=== PATIENT | female | born 1975 | race Caucasian/White ===

== ENCOUNTER 2019-08-04 13:37 | Outpatient (REF) | payer BC, SELFPAY ==
[2019-08-05 13:00] LABS: Chlamydia Result Negative (Negative); GC Result Negative (Negative)
== END 2019-08-04 13:57 ==
LOC: LBN 13:37
PROVIDERS: PCP Nurse Practitioner Family; Visit Provider Nurse Practitioner Family
DX: Z11.3 Encounter for screening for infections with a predominantly sexual mode of transmission (principal)
CPT/HCPCS: 87491; 87591

== ENCOUNTER 2020-08-16 01:57 | Outpatient (CLI) | payer BC, SELFPAY ==
--- NOTE | 2020-08-16 06:45 | DI.MAMMO_ITS ---
EXAM: MG MAMMO SCREENING CLINICAL HISTORY: screening. TECHNIQUE: Bilateral full field digital CC and MLO mammographic images were obtained with 3D tomosyn thesis and utilizing computer aided detection (CAD). COMPARISON: Baseline mammogram on 45-year-old patient FINDINGS: Fibroglandular tissue is very dense, this decreasing the sensitivity mammogram for finding in underly ing lesions. There are no obvious spiculated masses nor malignant appearing microcalcification groups. There is n o significant architectural distortion nor skin thickening-retraction. IMPRESSION: Very dense bilateral fibroglandular tissue. No obvious radiographic evidence of malignancy. BI-RADS Category 1 - Negative Breast Density - Category D - Extremely dense Breast density Category C or D implies that the patient has dense breast tissue. Dense breast tissue can make it harder to find cancer on a mammogram. Dense breast tissue is also associated with an incr eased risk of breast cancer. This information about the result of the mammogram report was provided to the patient to raise their awareness. Use this report when you speak with the patient about their risks for breast cancer, which includes their family history. At that time, you may recommend additional screening tests (Ultrasoun d or MRI) as these tests may add significant information. A negative radiographic report should not delay biopsy if a dominant or clinically suspicious mass is present. Up to ten percent of cancers are not identified on mammography. A negative report may reinforce clinical impression. Adenosis and dense breasts may obscure an underlying neoplasm. False positive reports average 6 to 10%. Patient will receive a letter notifying them of these results.
== END 2020-08-16 02:17 ==
PROVIDERS: PCP Nurse Practitioner Family; Visit Provider Nurse Practitioner
DX: Z12.31 Encounter for screening mammogram for malignant neoplasm of breast (principal)
CPT/HCPCS: 77063; 77067

== ENCOUNTER 2020-09-24 08:41 | Outpatient (REF) | payer BC, SELFPAY ==
--- NOTE | 2020-09-24 08:30 | PAPFT_PTH ---
PATIENT: Larisa Gibbs LOC: [facility] U#:[id number] AGE/SX: 45/F ROOM: RE09/24/[address]: LUIS Serrato : 1975 BED: DIS: 09/24/2020 SPEC #: [id number] RECD: 09/24/20 18:21 STATUS: SHIV REQ #: [id number] JHONATHAN: 09/24/20 08:[address]: Destinee Joyce DEPT: [facility] Cytology RECD BY: Lianna Becerra ENTERED: 09/24/20 18:22 SP TYPE: PAPFT OTHR DR: LUIS Bravo Tissues: 1 - CX/ENDOCX FOR PAP SMEARS Procedures: PAP THIN PREP/UVM Screening HPV DNA PROBE Comments: [id number]
== END 2020-09-24 08:42 | disposition home or self-care (01) ==
LOC: LBN 08:41
PROVIDERS: PCP Nurse Practitioner Family; Visit Provider Nurse Practitioner Family
DX: Z12.4 Encounter for screening for malignant neoplasm of cervix (principal); Z11.51 Encounter for screening for human papillomavirus (HPV)
CPT/HCPCS: 88142; 87624

== ENCOUNTER 2021-09-09 02:20 | Outpatient (CLI) | payer BC, SELFPAY ==
[2021-09-09 12:30] LABS: Source Nasal/Nares
[2021-09-09 17:58] LABS: COVID-19 PCR Negative (Negative)
== END 2021-09-09 02:21 | disposition home or self-care (01) ==
LOC: LBO 02:20
PROVIDERS: PCP Nurse Practitioner Family; Visit Provider Surgery
DX: Z20.822 Contact with and (suspected) exposure to COVID-19 (principal); Z01.818 Encounter for other preprocedural examination
CPT/HCPCS: 87635

== ENCOUNTER 2021-09-11 07:35 | Day surgery (SDC) | payer BC, SELFPAY ==
--- NOTE | 2021-09-11 06:29 | ROE_ITS ---
Date of service: 09/11/21 Time of Service: 09:21 Operative Note Operative Note DATE OF PROCEDURE: 09/11/21 PRE-OP DIAGNOSIS: 1. Lipoma of right upper back 2. Skin lesion of right lower back POST-OP DIAGNOSIS: same PROCEDURE: 1. Excision of lipoma- measuring 5 x 3 cm. 2. Excision of skin lesion - measuring 1.5 x 0.5 cm SURGEON: Brooke Mitchell Refer to Anesthesia Record PATHOLOGY: other (skin lesion) COMPLICATIONS: None Patient was transported to: same day Patient's condition: stable Indications: 46 year old female with a lipoma on her right upper back as well as a smaller skin lesion in the right lower back.? We discussed excision in the procedure room under local only. She can drive herself and have food that morning if she wants. I reviewed the risks and complications as well as aftercare Proceed with excision of right upper back lipoma and right lower back skin lesion Procedure Description: After informed consent was obtained the patient was taken to the operating room. Monitors were applied and she was then placed in a left lateral position. The skin was then prepped and draped in a sterile surgical fashion. Exparel mix ed with bupivocaine was injected over the palpable lipoma in the upper back and around the skin lesion in the lower back. An incision was made over the palpable lipoma with a 15 blade. Cautery was used to dissected through the subcutaneous tissue down to the capsule over the lipoma. Dissection was then done around the lipoma using both blunt dissection with a hemostat and sharp dissection with curved iris scissors. Once the lipoma was completely dissected it was removed from the operating field. The wound was irrigated with some saline. Bleeding was stopped using cautery as well as suture ligation. Once the wound was clean and dry the subcutaneous tissue was reapproximated with 3-0 Vicryl interrupted sutures. The dermis was closed with a interrupted 3-0 proline vertical mattress suture. Skin was cleaned and dried andmastasol and steri-strip were applied. Next an eliptical incision was made around the skin lesion in the lower back. Dissection was done with the scalple down to the subcutaneous tissue. Once completely dissected it was removed from the operating field and marked in the inferior edge of the tissue and placed into formalin. The skin edges were re-approximated with 3-0 Vicryl in the subcutaneous tissue and 4-0 vicryl for the dermis. The skin was cleaned and dried and skin affix was applied. The patient tolerated the procedure well and there were no immediate complications. Needle counts were correct at the end of the case.
--- NOTE | 2021-09-11 06:32 | W.PM.DSUDISC ---
Discharge Plan Disposition Patient Disposition: HOME Condition: Stable Discharge Details Reason For Visit: excision lesion and lipoma Attending Provider: Brooke Mitchell Primary Care Provider: Caprice Guerrero Home Meds and New Rx's Prescriptions: Continued sumatriptan succinate 50 mg tablet 50 mg PO Q2H MDD 2 tabs PRN (Reason: migraine headache) Qty: 60 3RF Rx Instructions: Take 1 tablet once at onset of headache, may repeat x 1 after 2hrs if needed. naproxen 500 mg tablet 500 mg PO BID PRN (Reason: pain) Qty: 60 4RF multivitamin 1 EACH tablet 1 tab PO DAILY 0RF Mirena 1 EACH intrauterine device 1 ea Intrauterine ONCE Qty: 1 0RF Label Comments: Placed 08/10/2014. Expires 08/10/2019 Discharge Instructions Additional Instructions: Activity at Home after surgery: 1. As tolerated Diet, Nutrition, & wound healin. As Tolerated Pain Medications: 1. Tylenol 650mg every 6 hours as needed and Ibuprofen 600 mg every 6 hours as needed. You may alternate between the 2 medications every 3 hours 2.If you are taking the Naproxen dont take ibuprofen For Constipation: 1. Take Milk of Magnesia or MiraLax as needed for constipation Other: 1. You may shower daily. Do not scrub the incisions 2. Do not soak the incisions for 1 week 3. You may alternate ice and heat as needed for pain and swelling Wound Care: 1. Keep the incisions clean and dry Please call our office if you develop: 1. Fevers >101.5 2. Nausea or Vomiting 3. Worsening pain 4. Redness and thick discharge from the wounds If after hours please call the Hospital at and ask to speak to the on-call surgeon Referrals: Brooke Mitchell MD [ [facility] STAFF PHYSICIAN] - 09/24/21 11:00 am Activity:: Activity as Tolerated Diet:: As Tolerated Discharge Orders Discharge Orders: Discharge Order (Routine); Ordered 09/11/21 Ordered By: Brooke Mitchell
[2021-09-11 07:43] VITALS: BP 136/86; PULSE 65; RESP 16; TEMP 36.7; O2SAT 100
[2021-09-11] MEDS: Celecoxib 200 MG CAP PO (07:57)
[2021-09-11] MEDS: Acetaminophen 500 MG TAB 1000 MG PO (07:58)
[2021-09-11] MEDS: Lactated Ringers 1,000 ML 80 ML IV (08:05)
[2021-09-11] MEDS: ceFAZolin 2 GM/50 ML BAG IVPB (08:20)
[2021-09-11] MEDS: Bupivacaine LIPOSOME/PF 133 MG/10 ML VIAL IJ (08:29)
[2021-09-11] MEDS: Bupivacaine 0.25% Pres-Free 30 ML VIAL (08:29)
--- NOTE | 2021-09-11 09:00 | SKI_PTH ---
PATIENT: Larisa Gibbs LOC: [facility] U#:[id number] AGE/SX: 46/F ROOM: RE09/11/[address]: Brooke Mitchell MD : 1975 BED: DIS: 09/11/2021 SPEC #: [id number] RECD: 09/11/21 12:38 STATUS: SHIV REJc #: [id number] JHONATHAN: 09/11/21 09:[address]: Brooke Mitchell DEPT: Surgical Specimen RECD BY: Lianna Becerra ENTERED: 09/11/21 12:39 SP TYPE: TOO ROBISON DR: Caprice Guerrero, LUIS Tissues: 1 - SKIN BIOPSY(SHAVE/PUNCH) Procedures: SKIN LEVEL 4 Comments: [id number]
[2021-09-11 09:22] VITALS: BP 132/92; PULSE 65; RESP 16; TEMP 36.4; O2SAT 100
== END 2021-09-11 09:40 | disposition home or self-care (01) ==
LOC: SUR 07:36
PROVIDERS: PCP Nurse Practitioner Family; Visit Provider Surgery
PROC: (CPT 11406; principal; 2021-09-11 09:00)
DX: D23.5 Other benign neoplasm of skin of trunk (principal); L98.8 Other specified disorders of the skin and subcutaneous tissue
CPT/HCPCS: 11406; 12032; 11402; 88305; J0690

== ENCOUNTER 2022-07-23 03:38 | Outpatient (CLI) | payer BC, SELFPAY ==
--- NOTE | 2022-07-23 16:02 | DI.MAMMO_ITS ---
Exam(s) MAMMO SCREENING EXAM: MAMMO SCREENING CLINICAL HISTORY: screening,z12.39. TECHNIQUE: Bilateral full field digital CC and MLO mammographic images were obtained with 3D tomosyn thesis and utilizing computer aided detection (CAD). COMPARISON: 2020 FINDINGS: Masses/Architectural Distortion: None seen. Microcalcifications: No suspicious pleomorphic-type are seen. Skin Thickening/Nipple Retraction: None. IMPRESSION: 1. No significant interval change with no specific features of malignancy noted. 2. Unless there is more urgent need, annual screening mammography is recommended, as per [place] [employer] guidelines. BI-RADS Category 1-negative Breast Density - Category D - extremely dense Breast Density Category D: The mammogram demonstrates the patient's breast tissue is dense. Dense hector ast tissue is very common and is not abnormal but dense breast tissue can make it harder to find canc er on a mammogram. Also, dense breast tissue may increase their breast cancer risk. This information about the result of the mammogram report was provided to the patient to raise their awareness. Use th is report when you speak with the patient about their risks for breast cancer, which includes their f amily history. At that time, you may recommend for more screening tests (Ultrasound or MRI) as they m ight be useful based on their risk. A negative radiographic report should not delay biopsy if a dominant or clinically suspicious mass is present. Up to ten percent of cancers are not identified on mammography. A negative report may reinforce clinical impression. Adenosis and dense breasts may obscure an underlying neoplasm. False positive reports average 6 to 10%.
== END 2022-07-23 03:58 ==
LOC: DI 03:38
PROVIDERS: PCP Nurse Practitioner Family; Visit Provider Nurse Practitioner Family
DX: Z12.31 Encounter for screening mammogram for malignant neoplasm of breast (principal)
CPT/HCPCS: 77063; 77067

== ENCOUNTER → 2023-07-28 02:07 | Outpatient (CLI) | payer BC, SELFPAY ==
--- NOTE | 2023-07-28 08:15 | DI.MAMMO_ITS ---
Exam(s) MAMMO SCREENING EXAM: MAMMO SCREENING CLINICAL HISTORY: screening,z12.39,gen med exam,z00.00 TECHNIQUE: Bilateral full field digital CC and MLO mammographic images were obtained with 3D tomosyn thesis and utilizing computer aided detection (CAD). COMPARISON: Available for comparison. FINDINGS: Masses/Architectural Distortion: Bilateral well-circumscribed nodules are again seen. No suspicious or new nodules. No areas of architectural distortion. Microcalcifications: No suspicious pleomorphic-type are seen. Skin Thickening/Nipple Retraction: None. IMPRESSION: 1. No significant interval change with no specific features of malignancy noted. 2. Unless there is more urgent need, screening mammography is recommended, as per [place] [employer] guidelines. BI-RADS Category 1 - Negative Breast Density - Category D - Extremely dense Breast density category C or D implies that the patient has dense breast tissue. Dense breast tissue is very common and is not abnormal but dense breast tissue can make it harder to find cancer on a ma mmogram. Also, dense breast tissue may increase their breast cancer risk. This information about the result of the mammogram report was provided to the patient to raise their awareness. Use this report when you speak with the patient about their risks for breast cancer, which includes their family hist ory. At that time, you may recommend for more screening tests (Ultrasound or MRI) as they might be us eful based on their risk. A negative radiographic report should not delay biopsy if a dominant or clinically suspicious mass is present. Up to ten percent of cancers are not identified on mammography. A negative report may reinforce clinical impression. Adenosis and dense breasts may obscure an underlying neoplasm. False positive reports average 6 to 10%. Patient will receive a letter notifying them of these results.
== END ==
PROVIDERS: PCP Nurse Practitioner Family; Visit Provider Nurse Practitioner Family
DX: Z00.00 Encounter for general adult medical examination without abnormal findings (principal); Z12.31 Encounter for screening mammogram for malignant neoplasm of breast
CPT/HCPCS: 77063; 77067

== ENCOUNTER 2024-01-06 04:51 | Outpatient (CLI) | payer BC, SELFPAY ==
[2024-01-06 09:14] LABS: Hemoglobin A1C 5.5 % (<5.7)
[2024-01-06 09:38] LABS: Anion Gap 7.3 mmol/L (3-11); BUN 14 mg/dL (7-18); CO2 29.7 mmol/L (21.0-32.0); CREATININE 0.7 mg/dL (0.55-1.02); Calcium 8.5 mg/dL (8.5-10.1); Calculated LDL 109 mg/dL (<100); Chloride 103 mmol/L (98-107); Cholesterol 178 mg/dL (<200); Estimated GFR 107.28 (mL/min/1.73m2); Glucose 98 mg/dL (74-106); HDL Cholesterol 59 mg/dL (40-60); Potassium 4.4 mmol/L (3.5-5.1); Sodium 140 mmol/L (136-145); TSH (W/Ref FT4) 3.05 uIU/mL (0.36-3.74); Triglyceride 54 mg/dL (<150)
== END 2024-01-06 04:52 | disposition home or self-care (01) ==
PROVIDERS: PCP Nurse Practitioner Family; Visit Provider Nurse Practitioner Family
DX: Z00.00 Encounter for general adult medical examination without abnormal findings (principal)
CPT/HCPCS: 36415; 80048; 80061; 83036; 84443

== ENCOUNTER 2024-08-09 01:48 | Outpatient (CLI) | payer BC, SELFPAY ==
--- NOTE | 2024-08-09 06:30 | DI.MAMMO_ITS ---
Exam(s) MAMMO SCREENING EXAM: MAMMO SCREENING CLINICAL HISTORY: screening,Z12.39. TECHNIQUE: Bilateral full field digital CC and MLO mammographic images were obtained with 3D tomosyn thesis and utilizing computer aided detection (CAD). COMPARISON: Prior mammograms were reviewed. FINDINGS: Fibroglandular tissue is again noted be very dense, this decreasing the sensitivity of the mammogram for finding hidden underlying lesions. In the anterior aspect of the right breast there is a roundish nodular density measuring approximate ly 2 x 2 cm located 2 cm in from the nipple. Further imaging recommended. In the left breast there is a roundish 1.3 cm nodule seen on the MLO view approximately 2 cm in from the nipple. Further imaging recommended. There are no malignant-appearing microcalcification groups in either breast. There is no significant architectural distortion nor skin thickening-retraction. IMPRESSION: Very dense bilateral fibroglandular tissue. Bilateral nodules as described above. Bilateral spot co mpression views and bilateral complete breast ultrasound recommended. BI-RADS Category 0 - Incomplete: Need additional imaging evaluation Breast Density - Category D - Extremely dense Breast density Category C or D implies that the patient has dense breast tissue. Dense breast tissue can make it harder to find cancer on a mammogram. Dense breast tissue is also associated with an incr eased risk of breast cancer. This information about the result of the mammogram report was provided to the patient to raise their awareness. Use this report when you speak with the patient about their risks for breast cancer, which includes their family history. At that time, you may recommend additional screening tests (Ultrasoun d or MRI) as these tests may add significant information. A negative radiographic report should not delay biopsy if a dominant or clinically suspicious mass is present. Up to ten percent of cancers are not identified on mammography. A negative report may reinforce clinical impression. Adenosis and dense breasts may obscure an underlying neoplasm. False positive reports average 6 to 10%. Patient will receive a letter notifying them of these results.
== END 2024-08-09 02:08 ==
LOC: DI 01:49
PROVIDERS: PCP Nurse Practitioner Family; Visit Provider Nurse Practitioner Family
DX: Z12.31 Encounter for screening mammogram for malignant neoplasm of breast (principal); R92.343 Mammographic extreme density, bilateral breasts
CPT/HCPCS: 77063; 77067

== ENCOUNTER 2024-08-19 00:21 | Outpatient (CLI) | payer BC, SELFPAY ==
--- NOTE | 2024-08-19 | DI.MAMMO_ITS ---
Exam(s) US BREAST RT LIMITED US BREAST LT LIMITED MG MAMMO SCREEN CALL BACK BI EXAM: MG MAMMO SCREEN CALL BACK BI and bilateral limited breast ultrasound CLINICAL HISTORY: F/U MAMMO, RHETT BREAST NODULES, VERY DENSE RHETT FIBROGLANDULAR TISSUE. TECHNIQUE: Craniocaudal and mediolateral oblique Full Field Digital Mammography views of the bilater al breast with Computer Aided Diagnosis followed by Tomosynthesis and bilateral breast ultrasound. COMPARISON: Comparison is made with prior examinations. FINDINGS: Mammography/Tomosynthesis: Masses/Architectural Distortion: There again seen well-circumscribed nodules in the retroareolar justice on of the right breast and left breast. No suspicious areas of architectural distortion are seen. Microcalcifictions: No suspicious pleomorphic-type are seen. Skin Thickening/Nipple Retraction: None. Limited bilateral breast US: Echotexture: Normal appearance of the glandular tissue. Shadowing: No suspicious foci. Cyst: In the right breast, there are multiple cysts present. The largest is at the 7 o'clock positio n 1 cm from the nipple measuring 3.0 x 1.4 x 2.8 cm. No suspicious cysts are seen in the right breas t. In the left breast, there are multiple cysts present. The largest measures 1.7 x 1.2 x 1.5 cm an d is located at the 1 o'clock position 1 cm from the nipple. There is a 2.4 x 1.1 x 2.2 cm radially oriented well-circumscribed hypoechoic nodule at the 3 o'clock position of the left breast 1 cm from the nipple. There is posterior acoustic enhancement. This may represent a fibroadenoma or complex c yst. Solid lesions: None seen. Ductal dilation: None. IMPRESSION: 1. No definite evidence of malignancy is noted. 2. A six-month follow-up left mammogram and left breast ultrasound are requested for re-evaluation of the lesion at 3 o'clock. 3. The findings were discussed with the patient on the date of the examination. BI-RADS Category 3 - 6 month - Probably Benign Finding: Recommend follow-up imaging in 6 months Breast Density - Category C - Heterogeneously dense Breast density Category C or D implies that the patient has dense breast tissue. Dense breast tissue can make it harder to find cancer on a mammogram. Dense breast tissue is also associated with an incr eased risk of breast cancer. This information about the result of the mammogram report was provided to the patient to raise their awareness. Use this report when you speak with the patient about their risks for breast cancer, which includes their family history. At that time, you may recommend additional screening tests (Ultrasoun d or MRI) as these tests may add significant information. A negative radiographic report should not delay biopsy if a dominant or clinically suspicious mass is present. Up to ten percent of cancers are not identified on mammography. A negative report may reinforce clinical impression. Adenosis and dense breasts may obscure an underlying neoplasm. False positive reports average 6 to 10%. Patient will receive a letter notifying them of these results.
--- OUTSIDE RECORDS SUMMARY | 2024-08-19 00:33 | XMS_ITS | Referral Summary ---
Author Organization [facility] Address [address] [place] [address] Care Team Providers Care Heater Helper Name Role Phone Umu Mccord MORNING NEWS ANCHOR Primary Care Provider [phone] Social History Tobacco Use Types Packs/Day Years Used Date Smoking Tobacco: Never Assessed Interpersonal Safety Answer Date Record ed Physically Hurt Never 02/19/2020 Verbally Threaten Not on file 02/19/2020 Comments Unknown Sex and Gender Information Value Date Recorded Sex Assigned at Not on file Legal Sex Female 18:42 EST Gender Identity Not on file Sexual Orientation Not on file Plan of Treatment Not on file Insurance [facility] Care Teams Heater Helper Relationship Specialty Start Date End Date Umu Mccord, MORNING NEWS ANCHOR PCP - General 12/23/17
--- OUTSIDE RECORDS SUMMARY | 2024-08-19 00:33 | XMS_ITS | Encounter Summary ---
Author Organization [facility] Address [address] [place] [address] Care Team Providers Care Installer Interior Assemblies Name Role Phone Celeste Stevenson Primary Care Provider Unavailab le Encounter Details Date Type Department Care Team (Late st Contact Info) Description 09/07/2017 Results Only [facility] [phone] aMtthew Schmid MD [address] [facility] ,[address] [place] [id number] Social History Tobacco Use Types Packs/Day Years Used Date Smoking Tobacco: Never Assessed Comments Unknown Sex and Gender Information Value Date Recorded Sex Assigned at Not on file Legal Sex Female 18:42 EST Gender Identity Not on file Sexual Orientation Not on file documented as of this encounter Plan of Treatment Not on file documented as of this encounter Procedures Procedure Name Priority Date/Time Associated Diagnosis Comments PAP TEST- RESULT ONLY Routine 09/07/2017 0:00 EST documented in this encounter Results * PAP TEST- RESULT ONLY (09/07/2017 0:00 EST) Pathology Report: CYTOPATHOLOGY REPORT Reports generated via electronic interface contain original data; however they are lacking the format of the original report. Caution should be taken when reading/interpreting unformatted reports. Name: ? LARISA ORTIZ ? Accession #: ? [id number] ? : ? 1975 (Age: 42) ??F ?Collect Date: ? 09/07/2017 ? Location: ? [facility] ? Receive Date: ? 09/08/2017 ? Provider: MATTHEW SCHMID MD Copy to: PARRIS POTTS NP ? Final Report SPECIMEN ADEQUACY ? Satisfactory for Evaluation - transformation zone component present GENERAL CATEGORIZATION ? Epithelial Cell Abnormality INTERPRETATION ? Squamous Cell Abnormality - Atypical squamous cells, undetermined significance (ASC-US). EDUCATIONAL NOTES/RECOMMENDATION S ? [facility] recommends following ASCCP's 2012 Updated Consensus Guidelines for the Management of Abnormal Cervical Cancer Screening Tests and Cancer Precursors (JLGTD, 2013; 17(5):S1-S27). ??Consensus guidelines are available online at www.asccp.org. Case reviewed at Intradepartmental Consultation Conference Hormonal/Contracepti ve status: Intrauterine device Specimen/Source: ??Pap Test, Cervix, ThinPrep Imaging System with manual evaluation Document reviewed and electronically signed by: ? NEIL VANN MD ? Report ??Date: 09/21/2017 12:04 HPV with Pap Test ? Date Ordered: ? 09/21/2017 ? Status: ?? Signed Out ?Date Complete: ? 09/23/2017 ? By: ??System Interface ? Date Reported: ? 09/23/2017 ? Interpretation RESULT: Negative for HPV. No E6 or E7 mRNA is detected from HPV types 16,18,31,33,35, 39,45,51,52,56,58,59 ,66, and 68 by unclaimed property manager mediated amplification. Comments Document reviewed and electronically signed by: ? System Interface ? Report date: 09/23/2017 By the signature above, the attending physician certifies that he/she has personally conducted a gross and/or microscopic examination of the described specimens and rendered or confirmed the above diagnosis. End of Report [facility] 09/07/2017 09/08/2017 us Matthew Schmid MD PATHOLOGY ORDERABLES Final Res ult [facility] [address] [place] [address] documented in this encounter Visit Diagnoses Not on filedocumented in this encounter Care Teams Installer Interior Assemblies Relationship Specialty Start Date End Date Celeste Stevenson PA PCP - General 04/21/12 12/22/17 documented as of this encounter
--- OUTSIDE RECORDS SUMMARY | 2024-08-19 00:33 | XMS_ITS | Encounter Summary ---
Author Organization [facility] Address [address] [place] [address] Care Team Providers Care Tungsten Tender Name Role Phone Celeste Stevenson Primary Care Provider Unavailab le Encounter Details Date Type Department Care Team (Latest Contact Info) Description 12/18/2017 16:42 EDT - 12/18/2017 23:59 EDT Hospital Encounter [address] [address] Unknown, Provider, MD Discharge Disposition: Auto Discharge Social History Tobacco Use Types Packs/Day Years Used Date Smoking Tobacco: Never Assessed Comments Unknown Sex and Gender Information Value Date Recorded Sex Assigned at Not on file Legal Sex Female 18:42 EST Gender Identity Not on file Sexual Orientation Not on file documented as of this encounter Discharge Disposition Disposition Code Departure Means Destination Auto Discharge Home documented in this encounter Plan of Treatment Not on file documented as of this encounter Visit Diagnoses Not on filedocumented in this encounter Care Teams Tungsten Tender Relationship Specialty Start Date End Date Celeste Stevenson PA PCP - General 04/21/12 12/22/17 documented as of this encounter
--- OUTSIDE RECORDS SUMMARY | 2024-08-19 00:33 | XMS_ITS | Clinical Summary ---
Author Organization [facility] Address [address] [place] [address] Care Team Providers Care Rn Plastic Surgery Name Role Phone Umu Mccord DEDICATED INTERMODAL TRUCK DRIVER Primary Care Provider Social History Tobacco Use Types Packs/Day Years Used Date Smoking Tobacco: Never Assessed Interpersonal Safety Answer Date Record ed Physically Hurt Never 02/19/2020 Verbally Threaten Not on file 02/19/2020 Comments Unknown Sex and Gender Information Value Date Recorded Sex Assigned at Not on file Legal Sex Female 18:42 EST Gender Identity Not on file Sexual Orientation Not on file Plan of Treatment Health Maintenance Due Date Last Done Comments Hepatitis C Screen 1975 Hepatitis B Vaccine (1 of 3 - 19+ 3-dose series) 03/31 COVID-19 Vaccine (2023- season) 2024 Insurance [facility] Care Teams Rn Plastic Surgery Relationship Specialty Start Date End Date Umu Mccord NP PCP - General 12/23/17
--- OUTSIDE RECORDS SUMMARY | 2024-08-19 00:33 | XMS_ITS | Encounter Summary ---
Author Organization [facility] Address [address] [place] [address] Care Team Providers Care Multifocal Lens Inspector Name Role Phone Umu Mccord MARKETING ANALYTICS LEAD Primary Care Provider [phone] Encounter Details Date Type Department Care Team (Late st Contact Info) Description 09/11/2021 Lab Requisition [facility] Pathology & Laboratory Medicine - [address] [address] Aki Mitchell MD [address] [place] [address] [address] [place], [place] [id number] Encounter for other general examination Social History Tobacco Use Types Packs/Day Years [...] Procedure Name Priority Date/Time Associated Diagnosis Comments SURGICAL PATHOLOGY Today 09/11/2021 9: 00 EST Encounter for other general examination documented in this encounter Results * SURGICAL PATHOLOGY (09/11/2021 9:00 EST) Note to Patient The following pathology results have been interpreted by your pathologist and may be available to you before your health provider has had the opportunity to review them. Please allow time for your provider to receive these results and explore management options, if applicable. 09/13/2021 11:24 [facility] Final Diagnosis A. SKIN OF BACK, RIGHT LOWER, EXCISION: - Dermatofibroma. - Margins of excision negative. 09/13/2021 11:24 [facility] Attestation By the signature below, the attending physician certifies that they have 1) personally conducted a gross and/or microscopic examination of the described specimen(s), and/or personally interpreted the results of laboratory testing of the described specimen(s), and 2) personally rendered or confirmed the above diagnosis. 09/13/2021 11:24 [facility] at 1124 Clinical History Right lower back skin lesion; ? SCC vs. BCC; suture inferior 09/13/2021 11:24 [facility] Gross Description A. Received in formalin labelled with proper patient identification (initials S, M) and right lower back skin lesion is an oriented ellipse excision of bueno wrinkled skin with a suture designating inferior, (1.7 cm from medial to lateral, 0.7 cm from superior to inferior, and is excised to a depth of insert 0.4 cm). There is a central pale bueno-pires irregular lesion (0.5 x 0.5 by less than 0.1 cm). The inferior margin is inked blue and the superior margin is inked black. The specimen is serially sectioned from medial to lateral and is entirely submitted as follows: BLOCK LEDEZMA A1- medial tip, reverse en face A2-A3- central sections A4- lateral tip, reverse en face Lloyd To 09/12/2021 9:46 09/13/2021 11:24 [facility] Performing Lab [facility] 09/13/2021 11:24 [facility] Scanned Images 09/13/2021 11:24 [facility] Tissue TISSUE SPECIMEN FROM SKIN / Unknown 09/11/2021 9:00 EST 09/11/2021 16:40 EST us Aki Mitchell MD PATHOLOGY ORDERABLES Fin al Result [facility] [address] [place] [address] documented in this encounter Visit Diagnoses Diagnosis Encounter for other general examination documented in this encounter Care Teams Multifocal Lens Inspector Relationship Specialty Start Date End Date Umu Mccord NP PCP - General 12/23/17 documented as of this encounter
--- OUTSIDE RECORDS SUMMARY | 2024-08-19 00:33 | XMS_ITS | Encounter Summary ---
Author Organization [facility] Address [address] [place] [address] Care Team Providers Care Pedorthist Name Role Phone Mahnaz Stevenson Primary Care Provider Unavailab le Encounter Details Date Type Department Care Team (Late st Contact Info) Description 06/05/2014 Results Only [facility] Laboratory Services - [facility] ([place] [address] [place], [place] [id number] Kelsey Morris, OLIVER Social History Tobacco Use Types Packs/Day Years [...] Diagnosis Comments PAP TEST- RESULT ONLY Routine 06/05/2014 0:00 EST documented in this encounter Results * PAP TEST- RESULT ONLY (06/05/2014 0:00 EST) Pathology Report: CYTOPATHOLOGY REPORT Reports generated via electronic interface contain original data; however they are lacking the format of the original report. Caution should be taken when reading/interpreti ng unformatted reports. Name: ? LARISA ORTIZ ? Accession #: ? [id number] ? : ? 1975 (Age: 39) ??F ?Collect Date: ? 06/05/2014 ? Location: ? [facility] ? Receive Date: ? 06/06/2014 ? Provider: KELSEY MORRIS SUBMERSIBLE PILOT Copy to: MAHNAZ ROMEO ? Final Report SPECIMEN ADEQUACY ? Satisfactory for Evaluation - transformation zone component present GENERAL CATEGORIZATION ? Negative for Intraepithelial Lesion or Malignancy ?? Last Menstrual Period: 05/17/14 Specimen/Source: ??Pap Test, Cervix/Endocervix, ThinPrep Imaging System with manual evaluation Document reviewed and electronically signed by: ? Rubina Winchester, [place](ASCP) ? Report ??Date: 06/13/2014 08:53 HPV with Pap Test ? Date Ordered: ? 06/13/2014 ? Status: ?? Signed Out ?Date Complete: ? 06/16/2014 ? By: ??System Interface ? Date Reported: ? 06/16/2014 ? Interpretation RESULT: Negative for HPV. No E6 or E7 mRNA is detected from HPV types 16,18,31,33,35, 39,45,51,52,56,58, 59,66, and 68 by missile inspector preflight mediated amplification. Comments Document reviewed and electronically signed by: ? System Interface ? Report date: 06/16/2014 By the signature above, the attending physician certifies that he/she has personally conducted a gross and/or microscopic examination of the described specimens and rendered or confirmed the above diagnosis. End of Report [facility] 06/05/2014 06/06/2014 us Kelsey Morris SUBMERSIBLE PILOT PATHOLOGY ORDERABLES Final Re sult [facility] [address] [place] [address] documented in this encounter Visit Diagnoses Not on filedocumented in this encounter Care Teams Pedorthist Relationship Specialty Start Date End Date Mahnaz Stevenson PA PCP - General 04/21/12 12/22/17 documented as of this encounter
--- OUTSIDE RECORDS SUMMARY | 2024-08-19 00:33 | XMS_ITS | Encounter Summary ---
Author Organization [facility] Address [address] [place] [address] Care Team Providers Care Music Cataloguer Name Role Phone Celeste Stevenson Primary Care Provider Unavailab le Encounter Details Date Type Department Care Team (Late st Contact Info) Description 12/18/2017 Results Only [facility]- [facility] [phone] Ha Szymanski, [address] [place] [address] Social History Tobacco Use Types Packs/Day Years [...] Priority Date/Time Associated Diagnosis Comments SURGICAL PATHOLOGY Routine 12/18/2017 16 :06 EDT documented in this encounter Results * SURGICAL PATHOLOGY (12/18/2017 16:06 EDT) Pathology Report: SURGICAL PATHOLOGY REPORT Reports generated via electronic interface contain original data; however they are lacking the format of the original report. Caution should be taken when reading/interpret ing unformatted reports. Name: ? LARISA ORTIZ ? Accession #: ? [id number] ? : ? 1975 (Age: 42) ??F ? Collect Date: ? 12/18/2017 ? Location: ? [facility] ? Receive Date: ? 12/21/2017 ? Provider: HA SZYMANSKI DO Copy to: PARRIS POTTS CVOR NURSE ? Final Pathologic Diagnosis: SKIN OF CHEEK, RIGHT, SHAVE BIOPSY: - Seborrheic keratosis, pigmented. Document reviewed and electronically signed by: KERRI GUERRIER MD Report ??Date: 12/22/2017 13:25 By the signature above, the attending physician certifies that he/she has personally conducted a gross and/or microscopic examination of the described specimens and rendered or confirmed the above diagnosis. Specimen(s) Received: R cheek Clinical History: Chronic skin lesion; clinical diagnosis code: D49.2 Gross Description: ? Received in formalin labelled with proper patient identification (initials S, M) and right cheek is a shave biopsy of bueno-pink granular skin (0.4 x 0.3 x 0.1 cm). The specimen is inked and submitted entirely in 1. AGUEDA Clemente (ASCP) 12/21/2017 4:13 PM End of Report [facility] 12/18/2017 16:0 6 EDT 12/21/2017 16:06 EDT us Ha Szymanski DO PATHOLOGY ORDERABLES Fi nal Result [facility] [address] [place] [address] documented in this encounter Visit Diagnoses Not on filedocumented in this encounter Care Teams Music Cataloguer Relationship Specialty Start Date End Date Celeste Stevenosn PA PCP - General 04/21/12 12/22/17 documented as of this encounter
--- OUTSIDE RECORDS SUMMARY | 2024-08-19 00:33 | XMS_ITS | Encounter Summary ---
Author Organization [facility] Address [address] [place] [address] Care Team Providers Care Corn Cutter Name Role Phone Unavailable Primary Care Provider Unavailabl e Encounter Details Date Type Department Care Team (Latest Contact Info) Description 08/27/2010 14:40 EST - 08/27/2010 14:41 EST Hospital Encounter [facility] - Other [address] [place] [address] Cydney Farnsworth, [place] [address] Discharge Disposition: Home or Self Care Social History Tobacco Use Types Packs/Day Years Used Date Smoking Tobacco: Never Assessed Comments Unknown Sex and Gender Information Value Date Recorded Sex Assigned at Not on file Legal Sex Female 18:42 EST Gender Identity Not on file Sexual Orientation Not on file documented as of this encounter Discharge Disposition Disposition Code Departure Means Destination Home or Self Care documented in this encounter Plan of Treatment Not on file documented as of this encounter Visit Diagnoses Not on filedocumented in this encounter
--- OUTSIDE RECORDS SUMMARY | 2024-08-19 00:33 | XMS_ITS | Encounter Summary ---
Author Organization [facility] Address [address] [place] [address] Care Team Providers Care Veneer Redrier Name Role Phone Unavailable Primary Care Provider Unavailabl e Encounter Details Date Type Department Care Team (Late st Contact Info) Description 02/07/2009 Orders Only [facility] Laboratory Services - [facility] ([address] [id number] Kelsey Morris, OLIVER Social History Tobacco Use [...] Procedure Name Priority Date/Time Associated Diagnosis Comments HPV DETECTION, HIGH RISK TYPES Routine 02/07/2009 9:30 EDT CYTOPATHOLOGY Routine 02/07/2009 0:00 EDT documented in this encounter Results * HUMAN PAPILLOMA VIRUS DNA TEST (02/07/2009 9:30 EDT) Specimen Description Cervix, ThinPrep vial [facility] Result Negative for HPV types 16, 18, 31, 33, 35, 39, 45, 51, 52, 56, 58, 59, and 68. [facility] Report Status Final 02/15/2009 [facility] 02/07/2009 9:30 EDT 02/12/2009 10:52 EDT us Kelsey Madera Arturo TACK PULLER MICROBIOLOGY - GENERAL ORDERA BLES Final Result [facility] [address] [place] [address] * CYTOPATHOLOGY (02/07/2009 0:00 EDT) Pathology Report: CYTOPATHOLOGY REPORT ? Reports generated via electronic interface contain original data; ? however they are lacking the format of the original report. ? Caution should be taken when reading/interpreti ng unformatted reports. ? Name: ? LARISA ORTIZ ? Accession #: ? [id number] ? : ? 1975 (Age: 33) ??F ?Collect Date: ? 02/07/2009 ? Location: ? [facility] ? Receive Date: ? 02/08/2009 ? Provider: ?KELSEY M ARTURO TACK PULLER ? Copy to: ? Specimen/Source: ?Pap Test, Cervix/Endocervix, ThinPrep Imaging System ? with manual evaluation ? Last Menstrual Period: ? 07/05/09 ? Other: ? HPVDX - HPV testing requested regardless of diagnosis on current ThinPrep Pap ?? test. ? SPECIMEN ADEQUACY ? Satisfactory for Evaluation ? - transformation zone component present ? GENERAL CATEGORIZATION ? Negative for Intraepithelial Lesion or Malignancy ? Document reviewed and electronically signed by: ? Liza V[place],CT(ASCP) ? Report Date: ??02/09/2009 13:24 ? End of Report ? [facility] 02/07/2009 02/08/2009 us Kelsey Morris TACK PULLER PATHOLOGY ORDERABLES Final Re sult [facility] [address] [place] [address] documented in this encounter Visit Diagnoses Not on filedocumented in this encounter
--- OUTSIDE RECORDS SUMMARY | 2024-08-19 00:33 | XMS_ITS | Encounter Summary ---
Author Organization [facility] Address [address] [place] [address] Care Team Providers Care Treating Inspector Name Role Phone Unavailable Primary Care Provider Unavailabl e Encounter Details Date Type Department Care Team (Late st Contact Info) Description 06/28/2010 Results Only [facility] Laboratory Services - [facility] ([facility] [address] [place], [place] [phone] Sully Castro CNM [address] [place], [place] [address] Social History Tobacco Use Types Packs/Day Years [...] Procedure Name Priority Date/Time Associated Diagnosis Comments CYTOPATHOLOGY Routine 06/28/2010 0:00 EST documented in this encounter Results * CYTOPATHOLOGY (06/28/2010 0:00 EST) Pathology Report: CYTOPATHOLOGY REPORT ? Reports generated via electronic interface contain original data; ? however they are lacking the format of the original report. ? Caution should be taken when reading/interpreti ng unformatted reports. ? Name: ? LARISA ORTIZ A ? Accession #: ? [id number] ? : ? 1975 (Age: 35) ??F ?Collect Date: ? 06/28/2010 ? Location: ? [facility] ? Receive Date: ? 07/01/2010 ? Provider: ?ANEA LELONG CNM ? Copy to: ? Specimen/Source: ?Pap Test, Cervix/Endocervix, ThinPrep Imaging System ? with manual evaluation ? Last Menstrual Period: ? 04/26/2010 ? Menstrual/Pregnanc y Status: ? SPECIMEN ADEQUACY ? Satisfactory for Evaluation ? - transformation zone component present ? GENERAL CATEGORIZATION ? Negative for Intraepithelial Lesion or Malignancy ? Document reviewed and electronically signed by: ? Yousuf Claytonler, CT(ASCP) ? Report Date: ??07/05/2010 13:25 ? End of Report ? [facility] 06/28/2010 07/01/2010 Sully Castro CNM PATHOLOGY ORDERABLES Final Resul t [facility] [address] [place] [address] documented in this encounter Visit Diagnoses Not on filedocumented in this encounter
--- OUTSIDE RECORDS SUMMARY | 2024-08-19 00:33 | XMS_ITS | Encounter Summary ---
Author Organization [facility] Address [address] [place] [address] Care Team Providers Care Insurance Specialist Name Role Phone Unknown, Provider Primary Care Provider Andrew iladri Encounter Details Date Type Department Care Team (Late st Contact Info) Description 04/16/2012 Results Only [facility] Laboratory Services - [facility] ([facility]) [address] [place], [place] [address] Dragan Henson MD [address] [place] [phone] Social History Tobacco Use Types Packs/Day Years [...] Date/Time Associated Diagnosis Comments SURGICAL PATHOLOGY Routine 04/16/2012 0:00 EDT documented in this encounter Results * SURGICAL PATHOLOGY (04/16/2012 0:00 EDT) Pathology Report: SURGICAL PATHOLOGY REPORT Reports generated via electronic interface contain original data; however they are lacking the format of the original report. Caution should be taken when reading/interpreti ng unformatted reports. Name: ? LARISA ORTIZ ? Accession #: ? [id number] ? : ? 1975 (Age: 37) ??F ? Collect Date: ? 04/16/2012 ? Location: ? [facility] ? Receive Date: ? 04/16/2012 ? Provider: DRAGAN HENSON MD Copy to: MAHNAZ ROMEO ? Final Pathologic Diagnosis: ? Soft tissue of wrist, right 1st dorsal extensor compartment, excision: 1. ?Tendon/synovial tissue with myxoid degeneration, consistent with de Quervain's tenosynovitis. 2. ? Definitive cystic structure not identified. ?? Document reviewed and electronically signed by: KWADWO TREVIÑO MD Report ??Date: 04/22/2012 11:09 By the signature above, the attending physician certifies that he/she has personally conducted a gross and/or microscopic examination of the described specimens and rendered or confirmed the above diagnosis. Specimen(s) Received: ? Portion of 1st dorsal extensor compartment for de Quervain's tenosynovitis, tiny ganglion cyst attached Clinical History: ? de Quervain's tenosynovitisRt wrist Gross Description: ? Received in formalin labelled Sai, Larisa and right wrist portion of ext comp, either tendon and q cyst is a 1.4 x 0.4 x 0.2 cm bueno-white irregular fragment of rubbery fibrous tissue. ??A discernible cystic structure is not grossly identified. ??The specimen is submitted intact in a single cassette. (Romi Best)/[facility] End of Report [facility] 04/16/2012 04/16/2012 8:0 7 EDT us Dragan Henson MD PATHOLOGY ORDERABLES Final Result [facility] [address] [place] [address] documented in this encounter Visit Diagnoses Not on filedocumented in this encounter Care Teams Insurance Specialist Relationship Specialty Start Date End Date Unknown, Provider, PCP - General 08/28/10 04/20/12 documented as of this encounter
--- OUTSIDE RECORDS SUMMARY | 2024-08-19 00:33 | XMS_ITS | Encounter Summary ---
Author Organization [facility] [place] [address] Care Team Providers Care Signal Processing Engineer Name Role Phone Priyanka Aldridge MD Primary Care Provider [phone] Reason for Visit * Reason Comments Skin Check Encounter Details Date Type Department Care Team (Late st Contact Info) Description 12/11/2010 4:45 PM EDT Office Visit Dermatology [facility] [address] [place], [place] [id number] Olvin Sorensen MD [address] [place] [address] RD, [place] [address] Skin moles (Primary Dx) Social History Tobacco Use Types Packs/Day Years Used Date Smoking Tobacco: Never Assessed Sex and Gender Information Value Date Recorded Sex Assigned at Not on file Gender Identity Not on file Sexual Orientation Not on file documented as of this encounter Progress Notes * Olvin Sorensen MD - 12/11/2010 6:01 PM EDT Problem: Bothersome nevi. Larisa follows up and is now 35. She is 32-1/2 weeks with her first child, a boy. She is looking forward to delivering at [facility]. She is bothered by several new moles that have developed during the and are itchy and therefore irritated. Physical examination reveals pedunculated nevi, elastic nevi: one over the right anterior shoulder, site A; one over the right superior breast, site B; and one below her right axilla, site C. Assessment and Plan: 1. Bothersome nevi. 1a. As they are also noted to be irritated, I think it is reasonable, appropriate, and safe to remove them at this time. 1b. After obtaining informed patient consent, the sites were anesthetized and removed with shave biopsy. Triple antibiotic ointment and Band-Aids were placed at sites. 1c. We will submit for pathologic analysis. 1d. Return to the clinic here p.r.n. for new lesions/concerns. cc: Reinaldo Sexton Pathology Addendum per [facility] 12/19/10 : Site A Acrochordon (tag), Site B Seborrheic keratosis, Site C Intradermal nevus documented in this encounter Plan of Treatment Not on file documented as of this encounter Visit Diagnoses Diagnosis Skin moles- Primary Benign neoplasm of skin, site unspecified documented in this encounter Care Teams Signal Processing Engineer Relationship Specialty Start Date End Date Priyanka Aldridge MD [address] [place] [address] PCP - General 12/17/10 11/22/18 documented as of this encounter
--- OUTSIDE RECORDS SUMMARY | 2024-08-19 00:33 | XMS_ITS | Encounter Summary ---
Author Organization [facility] Address [facility] [place] [address] Care Team Providers Care Screen Making Supervisor Name Role Phone Caprice Guerrero BENCH WORKER HOLLOW HANDLE Primary Care Provider [phone] Reason for Visit * Reason Comments Follow-up Encounter Details Date Type Department Care Team (Late st Contact Info) Description 09/11/2020 10:15 AM EST Office Visit Dermatology at [address] [place] [address] Olvin Sorensen MD [address] [facility], [place] [address] Dermatofibroma Social History Tobacco Use Types Packs/Day Years Used Date Smoking Tobacco: Unknown Smokeless Tobacco: Never Sex and Gender Information Value Date Recorded Sex Assigned at Not on file Gender Identity Not on file Sexual Orientation Not on file documented as of this encounter Progress Notes * Olvin Sorensen MD - 09/11/2020 10:15 AM EST Problem: Skin lesion concern Larisa follows now 45. She noted a lesion on the left shoulder laterally and one on the central lower back. He is bothered she wonders if they could be removed. Physical examination reveals dermatofibromas each about 6 mm in diameter, 1 on the left lateral shoulder and one on the central lower back. They are faintly pigmented. Assessment and plan: Dermatofibromas 1. Would not recommend excision as the cosmetic result will likely be worse and more scar than whatshe has there now. 2. Instead recommended liquid nitrogen to try to flatten and lighten these. LN 2 x 2 was applied toeach site and top patient tolerated well 3. Post LN2 instructions given 4. Return to clinic here as needed. 5. Discussed dermatofibromas, their development following likely mild trauma to the site, and theirbenign nature. CC: Caprice Guerrero APRN documented in this encounter Plan of Treatment Not on file documented as of this encounter Visit Diagnoses Diagnosis Dermatofibroma Benign neoplasm of skin, site unspecified documented in this encounter Care Teams Screen Making Supervisor Relationship Specialty Start Date End Date Caprice Guerrero APRN [address] [place] [address] PCP - General Family Medicine 11/23/18 documented as of this encounter
--- OUTSIDE RECORDS SUMMARY | 2024-08-19 00:33 | XMS_ITS | Encounter Summary ---
Author Organization [facility] Address [address] [place] [address] Care Team Providers Care Bicycle Inspector Name Role Phone Unavailable Primary Care Provider Unavailabl e Encounter Details Date Type Department Care Team (Late st Contact Info) Description 10/05/2007 Results Only [facility] [address] [place] [address] Mahnaz Stevenson PA Social History Tobacco Use Types Packs/Day Years [...] Comments HPV DETECTION, HIGH RISK TYPES Routine 10/05/2007 15:19 EDT CYTOPATHOLOGY Routine 10/05/2007 0:00 EDT documented in this encounter Results * HUMAN PAPILLOMA VIRUS DNA TEST (10/05/2007 15:19 EDT) Specimen Description [facility] Result Negative for HPV types 16, 18, 31, 33, 35, 39, 45, 51, 52, 56, 58, 59, and 68. [facility] Report Status Final [id number] [facility] 10/05/2007 15:1 9 EDT 10/12/2007 15:19 EDT us Mahnaz ROMEO MICROBIOLOGY - GENERAL ORDERABLE S Final Result [facility] [address] [place] [address] * CYTOPATHOLOGY (10/05/2007 0:00 EDT) Pathology Report: CYTOPATHOLOGY REPORT Reports generated via electronic interface contain original data; however they are lacking the format of the original report. Caution should be taken when reading/interpreti ng unformatted reports. Name: ? JOCELYN ORTIZ ? Accession #: ? [id number] : ? 1975 (Age: 32) ??F ?Collect Date: ? 10/05/2007 Location: ? [facility] ? Receive Date: ? 10/06/2007 Provider: ?MAHNAZ ROMEO Copy to: ? Specimen/Source: ?ThinPrep Pap Test, Cervix/Endocervix, processed on eCollect ThinPrep Imaging System, with manual evaluation Last Menstrual Period: ? 09/21/07 Other: ? HPVDX - HPV testing requested regardless of diagnosis on current ThinPrep Pap test. ? SPECIMEN ADEQUACY ? Satisfactory for Evaluation - transformation zone component present GENERAL CATEGORIZATION ? Negative for Intraepithelial Lesion or Malignancy ? Document reviewed and electronically signed by: ? VEENA Langley(ASCP) ? Report Date: ??10/12/2007 10:13 End of Report [facility] 10/05/2007 10/06/2007 us Mahnaz ROMEO PATHOLOGY ORDERABLES Final Resul t Performing Organization Address City/State/[facility] Co de Phone Number [facility] [address] [place] [address] documented in this encounter Visit Diagnoses Not on filedocumented in this encounter
--- OUTSIDE RECORDS SUMMARY | 2024-08-19 00:33 | XMS_ITS | Encounter Summary ---
Author Organization [facility] Address [address] [place] [address] Care Team Providers Care Range Ecologist Name Role Phone Umu Mccord ELECTRONICS MAINTENANCE TECHNICIAN Primary Care Provider Encounter Details Date Type Department Care Team (Late st Contact Info) Description 09/25/2020 Lab Requisition [facility] Pathology & Laboratory Medicine - [address] [address] Destinee Joyce, [address] [place] [id number] Encounter for other general examination Social History [...] Name Priority Date/Time Associated Diagnosis Comments PAP TEST Today 09/24/2020 8:30 EST Encounter for other general examination HPV DNA DETECTION WITH GENOTYPING, PCR Today 09/24/2020 8:30 EST Encounter for other general examination documented in this encounter Results * HUMAN PAPILLOMAVIRUS (HPV) DETECTION-HIGH RISK TYPES (09/24/2020 8:30 EST) HPV other High Risk types, PCR Negative Negative 10/02/2020 15:36 EDT [facility] Comment:No E6 or E7 mRNA is detected from HPV types 16,18,31,33,35,39,45,51,52,56,58,59,66, and 68 by traffic observer mediated amplification. Papanicolaou smear specimen (specimen) CERVIX UTERI STRUCTURE / Unknown 09/24/2020 8:30 EST 10/01/2020 15:29 EDT us Destinee Joyce COLLECTIONS AND ARCHIVES DIRECTOR MICROBIOLOGY - GENERAL ORDER SHERRY Final Result [facility] [address] [place] [address] * PAP TEST (09/24/2020 8:30 EST) Specimens A. Cervix and/or Endocervix , ThinPrep Imaging System with Manual Evaluation 10/02/2020 15:36 [facility] Specimen Adequacy Satisfactory for Evaluation - transformation zone component present 10/02/2020 15:36 [facility] General Categorization Negative for intraepithelial lesion or malignancy 10/02/2020 15:36 [facility] Attestation . 10/02/2020 15:36 [facility] at 1536 Clinical History See below 10/03/19 21 15:36 [facility] HPV The result for the Human Papillomavirus (HPV) Detection-High Risk Types is Negative. No E6 or E7 mRNA is detected from HPV types 16,18,31,33,35,39 ,45,51,52,56,58,5 9,66, and 68 by traffic observer mediated amplification.Bisi ting was performed on specimen [id number] and was resulted on 10/02/2020 1533 EDT by [facility], LAB INSTRUMENT RESULTS IN 10/02/2020 15:36 T [facility] Performing Lab [facility] 10/02/2020 15:36 EDT [facility] Scanned Images 10/02/2020 15:36 EDT [facility] Papanicolaou smear specimen (specimen) CERVIX UTERI STRUCTURE / Unknown 09/24/2020 8:30 EST 09/25/2020 9:13 EST us Destinee Joyce COLLECTIONS AND ARCHIVES DIRECTOR PATHOLOGY ORDERABLES Final R esult [facility] [address] [place] [address] documented in this encounter Visit Diagnoses Diagnosis Encounter for other general examination documented in this encounter Care Teams Range Ecologist Relationship Specialty Start Date End Date Umu Mccord NP PCP - General 12/23/17 documented as of this encounter
--- OUTSIDE RECORDS SUMMARY | 2024-08-19 00:33 | XMS_ITS | Encounter Summary ---
Author Organization [facility] Address [address] [place] [address] Care Team Providers Care Woven Label Designer Name Role Phone Mahnaz Stevenson Primary Care Provider Unavailab le Encounter Details Date Type Department Care Team (Late st Contact Info) Description 09/06/2012 Results Only [facility] [[email or web address] [phone] Azeem Rivers, DO [address] [place] [address] Social History Tobacco Use Types Packs/Day Years [...] Priority Date/Time Associated Diagnosis Comments CYTOPATHOLOGY Routine 09/06/2012 0:00 EST documented in this encounter Results * CYTOPATHOLOGY (09/06/2012 0:00 EST) Pathology Report: CYTOPATHOLOGY REPORT Reports generated via electronic interface contain original data; however they are lacking the format of the original report. Caution should be taken when reading/interpreti ng unformatted reports. Name: ? LARISA ORTIZ ? Accession #: ? [id number] : ? 1975 (Age: 37) ??F ?Collect Date: ? 09/06/2012 Location: ? [facility] ? Receive Date: ? 09/07/2012 Provider: ? AZEEM RIVERS DO Copy to: ?[facility] ? CYTOLOGIC DIAGNOSIS: ? Breast, left, cyst, fine needle aspiration: 1. ?Negative for malignant cells. 2. ? Macrophages and rare benign duct epithelial cells, consistent with benign breast cyst. ?? Document reviewed and electronically signed by: ? DOTTY HIGH MD Report Date: ??09/07/2012 17:46 By the signature above, the attending physician certifies that he/she has personally conducted a gross and/or microscopic examination of the described specimens and rendered or confirmed the above diagnosis. Specimen Type: ? Breast, Fine Needle Aspiration, left Clinical History: ? Breast cyst; clinical diagnosis code: ??610.0 ? Gross Description: ? One vial of CytoLyt was received and processed by selective cellular enhancement technique. ? End of Report [facility] 09/06/2012 09/07/2012 8:3 7 EST us Azeem Rivers DO PATHOLOGY ORDERABLES Final Res ult [facility] [address] [place] [address] documented in this encounter Visit Diagnoses Not on filedocumented in this encounter Care Teams Woven Label Designer Relationship Specialty Start Date End Date Mahnaz Stevenson PA PCP - General 04/21/12 12/22/17 documented as of this encounter
--- OUTSIDE RECORDS SUMMARY | 2024-08-19 00:33 | XMS_ITS | Encounter Summary ---
Author Organization [facility] Address [address] [place] [address] Care Team Providers Care Rewinder Operator Helper Name Role Phone Umu Mccord CYCLE CONSULTANT Primary Care Provider [phone] Encounter Details Date Type Department Care Team (Late st Contact Info) Description 08/04/2019 Lab Requisition [facility] Pathology & Laboratory Medicine - [address] [address] Unknown, Provider, MD Social History Tobacco Use Types Packs/Day Years [...] Procedure Name Priority Date/Time Associated Diagnosis Comments CHLAMYDIA/N. GONORRHOEAE AMPLIFIED NUCLEIC ACID Routine 08/04/2019 11:00 EST documented in this encounter Results * CHLAMYDIA/N. GONORRHOEAE AMPLIFIED RNA (08/04/2019 11:00 EST) Neisseria gonorrhoeae Result Negative Negative 08/05/2019 12:56 EST [facility] Chlamydia trachomatis Result Negative Negative 08/05/2019 12:56 EST [facility] Swab ENTIRE ENDOCERVIX / Unknown 08/04/2019 11:00 EST 08/04/2019 22:18 EST us Provider Unknown MD MICROBIOLOGY - GENERAL ORDER SHERRY Final Result [facility] [address] [place] [address] documented in this encounter Visit Diagnoses Not on filedocumented in this encounter Care Teams Rewinder Operator Helper Relationship Specialty Start Date End Date Umu Mccord NP PCP - General 12/23/17 documented as of this encounter
--- OUTSIDE RECORDS SUMMARY | 2024-08-19 00:33 | XMS_ITS | Clinical Summary ---
Author Organization [facility] [place] [address] Care Team Providers Care Alarm Field Technician Name Role Phone LuhCaprice ma ERIBERTO Primary Care Provider Allergies No known active allergies Medications Medication Sig Dispensed Refills Start Date End Date Status SUMAtriptan (IMITREX) 100 mg tablet 08/19/2006 Active naproxen (NAPROSYN) 500 mg Tablet TAKE ONE TABLET BY MOUTH TWICE A DAY NEEDED FOR PAIN 08/04/2020 Active Social History Tobacco Use Types Packs/Day Years Used Date Smoking Tobacco: Unknown Smokeless Tobacco: Never Sex and Gender Information Value Date Recorded Sex Assigned at Not on file Gender Identity Not on file Sexual Orientation Not on file Plan of Treatment Health Maintenance Due Date Last Done Comments CT Colonography 1975 Colonoscopy 1975 Colorectal Cancer Screening 1975 FIT DNA 1975 FIT 1975 Sigmoidoscopy (10 year) with FIT yearly 1975 Sigmoidoscopy 1975 HIV screen 1994 Hepatitis C Screening 1994 Hepatitis B vaccine (0-59 yrs) (1) 1995 Tetanus/Diphtheria/Pertussis Vaccines (1 - Tdap) 03/31 HPV test 2006 PAP Smear 2006 Breast Cancer Share Decision Needed 2016 Breast Cancer screening 2016 Covid-19 Vaccine ( - 2023- season) 2024 Influenza (Flu) vaccine (1 o f 1 - Influenza standard series) 03/20/2024 Care Teams Alarm Field Technician Relationship Specialty Start Date End Date Caprice Guerrero APRN [address] [place] [address] PCP - General Family Medicine 11/23/18
== END 2024-08-19 00:41 ==
LOC: DI 00:22
PROVIDERS: PCP Nurse Practitioner Family; Visit Provider Nurse Practitioner Family
DX: R92.8 Other abnormal and inconclusive findings on diagnostic imaging of breast (principal); Z12.31 Encounter for screening mammogram for malignant neoplasm of breast; R92.333 Mammographic heterogeneous density, bilateral breasts; D24.2 Benign neoplasm of left breast
CPT/HCPCS: 76642; 77063; 77067

== ENCOUNTER 2025-02-09 01:25 | Outpatient (CLI) | payer BC, SELFPAY ==
--- NOTE | 2025-02-09 07:15 | DI.US_ITS ---
Exam(s) US BREAST LT COMPLETE MG MAMMO DIAGNOSTIC UNI EXAM: MG MAMMO DIAGNOSTIC UNI CLINICAL HISTORY: ABNL MAMMO LT BREAST,r92.8,z09,lt breast nodule 3 oclock. COMPARISON: MG MG MAMMO SCREENING from 08/16/2020 MG MG MAMMO SCREENING from 07/23/2022 MG MG MAMMO SCREENING from 07/28/2023 MG MG MAMMO SCREENING from 08/09/2024 US US BREAST LT LIMITED from 08/19/2024 MG MG MAMMO SCREEN CALL BACK BI from 08/19/2024 US US BREAST RT LIMITED from 08/19/2024 US US BREAST LT COMPLETE from 02/09/2025 TECHNIQUE: Craniocaudal and mediolateral oblique Full Field Digital Mammography views of the left breast with Computer Aided Diagnosis followed by Tomosynthesis and left breast ultrasound. FINDINGS: Mammography/Tomosynthesis: Masses: Previously noted areas of nodularity noted on ultrasound somewhat difficult to visualize due to dense breast tissue. There is a new area increased density with associated architectural distortion in the medial left breast, better seen on the CC view. There is an additional area noted the post erior central breast, 12 o'clock position. There are no associated calcifications. Microcalcifications: No suspicious pleomorphic-type are seen. Skin Thickening: None Nipple Retraction: Mild nipple retraction. Left breast US: Cysts: 9 millimeter cyst with debris mild o'clock position 4 cm from the nipple. 1.4 centimeter cyst with debris 2 o'clock position 6 cm from the nipple. More solid-appearing circumscribed lesion 3 o'clock position, 2 cm from the nipple measuring 16 x 11 x 14 millimeters. The lesion being followed in the 3 o'clock position again is circumscribed, mildly hypoechoic and nonshadowing. It appears unchanged in size and appearance, measured at 2.6 x 1.1 by 2.6 cm. Solid lesions: Area of shadowing in the 12 o'clock position, 6 cm from the nipple measuring roughly 9 x 12 x 11 millimeters. Additional areas are of irregular shadowing noted in the upper inner quadrant from 11-9 o'clock positions. A discrete mass is difficult to measure. Ductal dilation: Mild ductal dilatation in the subareolar region. IMPRESSION: 1. New areas of increased density in the superior and medial aspects of the left breast which correspond to areas of shadowing on ultrasound. MRI recommended for further evaluation. 2. 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 Other cysts also appear stable. BI-RADS Category 0 - Incomplete: Need additional imaging evaluation Breast Density - Category C - The breast are heterogeneously dense, which may obscure small masses. Breast density Category C or D implies that the patient has dense breast tissue. Dense breast tissue can make it harder to find cancer on a mammogram. Dense breast tissue is also associated with an increased risk of breast cancer. This information about the result of the mammogram report was provided to the patient to raise their awareness. Use this report when you speak with the patient about their risks for breast cancer, which includes their family history. At that time, you may recommend additional screening tests (Ultrasound or MRI) as these tests may add significant information. A negative radiographic report should not delay biopsy if a dominant or clinically suspicious mass is present. Up to ten percent of cancers are not identified on mammography. A negative report may reinforce clinical impression. Adenosis and dense breasts may obscure an underlying neoplasm. False positive reports average 6 to 10%. Patient will receive a letter notifying them of these results.
== END 2025-02-09 01:45 ==
LOC: DI 01:25
PROVIDERS: PCP Nurse Practitioner Family; Visit Provider Nurse Practitioner Family
DX: Z09 Encounter for follow-up examination after completed treatment for conditions other than malignant neoplasm (principal); R92.8 Other abnormal and inconclusive findings on diagnostic imaging of breast; N60.22 Fibroadenosis of left breast
CPT/HCPCS: 76642; 77061; 77065; G0279

== ENCOUNTER 2025-07-05 16:31 | Outpatient (CLI) | payer BC, SELFPAY ==
[2025-07-05 16:52] LABS: Abs Immature Grans 0.03 10^3/uL (0.0-0.06); HCT 38.6 % (36.0-46.0); HGB 12.8 g/dL (11.2-15.7); Immature Grans % 0.4 %; MCH 30.2 pg (27.0-33.0); MCHC 33.2 % (32.0-36.0); MCV 91 fL (80-95); MPV 9.5 fL (8.0-11.0); Platelet Count 254 10^3/uL (130-400); RBC 4.24 10^6/uL (3.93-5.22); RDW 12.2 % (11.7-14.6); RDW-SD 40.8 fL; WBC 8.49 10^3/uL (4.4-10.8)
[2025-07-05 17:48] LABS: Hemoglobin A1C 5.2 % (<5.7)
[2025-07-05 17:49] LABS: ALT 21 U/L (10-49); AST 20 U/L (<34); Albumin 4.4 g/dL (3.2-5.0); Alkaline Phosphatase 74 U/L (46-116); Anion Gap 6.8 mmol/L (3-11); BUN 15 mg/dL (9-23); Bilirubin, Total 0.5 mg/dL (0.2-1.2); CO2 29.2 mmol/L (20.0-31.0); Calcium 9.1 mg/dL (8.3-10.6); Chloride 103 mmol/L (98-107); Glucose 83 mg/dL (74-106); Potassium 4.1 mmol/L (3.5-5.1); Sodium 139 mmol/L (136-145); Total Protein 6.9 g/dL (5.7-8.2)
[2025-07-05 17:52] LABS: TSH (W/Ref FT4) 3.70 uIU/mL (0.55-4.78)
[2025-07-06 19:15] LABS: Hepatitis C Ab w Rflx HCV PCR Negative (Negative)
[2025-07-06 19:17] LABS: HBs Antibody, Quant <3.1 mIU/mL (See Note); Hepatitis B Surface Antigen Negative (Negative)
[2025-07-06 21:09] LABS: HIV-1/2 Ag & Ab Screen Negative (Negative)
== END 2025-07-05 16:32 | disposition home or self-care (01) ==
LOC: LBO 16:32
PROVIDERS: PCP Nurse Practitioner Family; Visit Provider Nurse Practitioner Family
DX: Z00.00 Encounter for general adult medical examination without abnormal findings (principal); Z11.59 Encounter for screening for other viral diseases; Z11.4 Encounter for screening for human immunodeficiency virus [HIV]
CPT/HCPCS: 36415; 80053; 86704; 86706; 86803; 87340; 87389; 83036; 84443; 85025